=== PATIENT | male | born 1955 | race Caucasian/White ===

== ENCOUNTER 2017-02-08 20:31 | Emergency (ER) | payer OTHER ==
[~2017-02-08] VITALS: Ht 157.5 cm; Wt 55.5 kg
[~2017-02-08 20:31] MED LIST: AMOXICILLIN/CL875 MG PO; BENZONATATE200 MG PO; FLONASE NASAL50 MCG; MULTI FOR HIM PO; NEXIUM40 M1 PO
[2017-02-08] MEDS ORDERED: AUGMENTIN875TAB PO (23:07)
[2017-02-08] MEDS ORDERED: PERCOCET 5/325M1 TAB PO (23:07)
[2017-02-09 00:54] VITALS: BP 148/76
== END 2017-02-09 00:10 | disposition home or self-care (01) | DRG 605 ==
LOC: ED 20:31
PROC: 0HQEXZZ Repair Left Lower Arm Skin, External Approach (ICD-10-PCS; principal; 2017-02-09)
DX: S51.832A Puncture wound without foreign body of left forearm, initial encounter (principal); S50.812A Abrasion of left forearm, initial encounter; S51.812A Laceration without foreign body of left forearm, initial encounter; S60.811A Abrasion of right wrist, initial encounter; W54.0XXA Bitten by dog, initial encounter; Y93.89 Activity, other specified; Y92.007 Garden or yard of unspecified non-institutional (private) residence as the place of occurrence of the external cause

== ENCOUNTER → 2018-06-24 | Outpatient (REF) ==
[~2018-06-24] MED LIST changes: +AUGMENTIN875TAB PO; +PERCOCET 5/325M1 TAB PO
== END | disposition home or self-care (01) | DRG 951 ==
LOC: PAGE 12:00
PROVIDERS: ATTEND Nurse Practitioner Family
DX: Z02.9 Encounter for administrative examinations, unspecified (principal)

== ENCOUNTER → 2018-12-05 | Outpatient (REF) ==
[2018-12-05 09:19] LABS: CHOLESTEROL HDL RATIO 3.5 (<4.4 (CALC))
== END | disposition home or self-care (01) | DRG 951 ==
LOC: LAB 07:36
PROVIDERS: ATTEND Family Medicine
DX: Z02.6 Encounter for examination for insurance purposes (principal)

== ENCOUNTER 2019-07-28 07:53 | Day surgery (SDC) | payer OTHER ==
[~2019-07-28] VITALS: Ht 157.5 cm; Wt 55.3 kg
[~2019-07-28 07:53] MED LIST changes: +ALEVE220 M1 PO; +NEXIUM20 M1 PO; +VITAMINS & PO; +[UNRECOGNIZED DRUG - OTHER] PO
[2019-07-28 10:42] VITALS: BP 110/69
== END 2019-07-28 10:52 | disposition home or self-care (01) | DRG 392 ==
LOC: ORM 07:53
PROVIDERS: ATTEND Surgery
PROC: 0DJ08ZZ Inspection of Upper Intestinal Tract, Via Natural or Artificial Opening Endoscopic (ICD-10-PCS; principal; 2019-07-28)
PROC: 0DJD8ZZ Inspection of Lower Intestinal Tract, Via Natural or Artificial Opening Endoscopic (ICD-10-PCS; 2019-07-28)
DX: K21.9 Gastro-esophageal reflux disease without esophagitis (principal); K29.70 Gastritis, unspecified, without bleeding; K44.9 Diaphragmatic hernia without obstruction or gangrene; Z12.11 Encounter for screening for malignant neoplasm of colon; K64.8 Other hemorrhoids

== ENCOUNTER 2020-09-23 21:35 | Emergency (ER) | payer OTHER ==
[~2020-09-23] VITALS: Ht 157.5 cm; Wt 56.0 kg
[2020-09-23] MEDS ORDERED: ALEVE220 M1 PO (22:10)
[2020-09-23] MEDS ORDERED: NEXIUM40 MG PO (22:11)
[2020-09-23 22:25] LABS: HEMATOCRIT 45.9 % (39.0-50.0); HEMOGLOBIN 15.4 g/dl (14.0-18.0); IMMATURE GRANULOCYTES 0.3 % (0.0-5.0); MEAN CELL VOLUME 88.4 fL CALC (80.0-100.0); MEAN CORPUSCULAR HGB 29.7 pG CALC (26.0-32.0); MEAN CORPUSCULAR HGB CONC 33.6 g/dL CAL (32.0-36.0); NEUT# 3.45 thou/uL (1.82-7.42); RED BLOOD COUNT 5.19 mill/uL (4.70-6.10); RED CELL DISTRI WIDTH 11.9 % (11.5-15.5)
[2020-09-23 22:50] LABS: ALBUMIN 4.1 g/dL (3.2-5.0); ALKALINE PHOSPHATASE 98 u/l (38-126); AMYLASE 73 u/l (30-110); ANION GAP 11 (6-22 (CALC)); BUN 25 mg/dL (8-23); BUN/CREATININE RATIO 27 (12-20 (CALC)); CARBON DIOXIDE 29 mmol/l (22-30); CHLORIDE 104 mmol/l (95-108); CREATININE 0.9 mg/dL (0.7-1.3); GFR > 60 ML/MIN (>=60 (CALC)); GFR FOR AFR.AMER. > 60 ML/MIN (>=60 (CALC)); LIPASE 148 u/l (23-300); POTASSIUM 4.1 mmol/l (3.5-5.1); SGOT/AST 23 u/l (19-48); SODIUM 139 mmol/l (137-146); TOTAL PROTEIN 6.8 g/dL (6.3-8.2)
[2020-09-23 22:51] LABS: ACT PARTIAL THROMBO TIME 25.1 SECONDS (20.0-32.5); BILIRUBIN, TOTAL 0.3 mg/dL (0.0-1.4); INTERNATIONAL NORMALIZED RATIO 0.9 RATIO (0.7-1.3); PROTHROMBIN TIME 9.4 SECONDS (9.0-12.5)
[2020-09-23 23:02] LABS: MYOGLOBIN 22 ng/mL (0 - 121)
[2020-09-23 23:08] LABS: D-DIMER 0.28 mg/L (0.19-0.60)
[2020-09-23] MEDS ORDERED: PROTONIX40 M2 PO (23:30)
[2020-09-23 23:50] VITALS: BP 116/78
== END 2020-09-23 23:55 | disposition home or self-care (01) | DRG 392 ==
LOC: ED 21:35
PROVIDERS: Family Medicine
DX: K21.9 Gastro-esophageal reflux disease without esophagitis (principal)

== ENCOUNTER 2024-10-31 14:04 | Observation (INO) | payer MEDICARE, OTHER ==
[2024-10-31] VITALS (22 sets, daily range): BP systolic 105–148; BP diastolic 66–84
[~2024-10-31] VITALS: Ht 157.5 cm; Wt 62.0 kg
[~2024-10-31 14:04] MED LIST changes: +ALBUTEROL SUL0.083 % IN; +AMOX/K CLAV875 M1 PO; +AZITHROMYCIN500 MG PO; +FAMOTIDINE40 M1 PO; +FATHER JOH10 MG/5 ML PO; +MEDDOSEPAK PO; +MELOXICAM15 MG PO; +NEBULIZER KIT/TUBING IN; +NEXIUM40 MG PO; +PEPCID20 MG PO; +PEPCID40 MG PO; +PROTONIX40 M2 PO; +ROBITUSSIN AC10 ML PO; +TAM75CAP PO
[2024-10-31] MEDS ORDERED: ASPIRIN 81 MG/TAB PO ONE (14:10)
[2024-10-31 14:28] LABS: BASO% 0.2 % (0-3); EOS% 0.2 % (0-8); HEMATOCRIT 43.2 % (39.0-50.0); HEMOGLOBIN 14.9 g/dl (14.0-18.0); IMMATURE GRANULOCYTES 0.1 % (0.0-5.0); LYMPH% 13.9 % (15-41); MEAN CELL VOLUME 88.2 fL CALC (80.0-100.0); MEAN CORPUSCULAR HGB 30.4 pG CALC (26.0-32.0); MEAN CORPUSCULAR HGB CONC 34.5 g/dL CAL (32.0-36.0); MONO% 5.2 % (2-13); NEUT# 6.84 thou/uL (1.82-7.42); NEUT% 80.4 % (42-76); RED BLOOD COUNT 4.9 mill/uL (4.70-6.10); RED CELL DISTRI WIDTH 11.6 % (11.5-15.5)
[2024-10-31 14:46] LABS: ALBUMIN 4.7 g/dL (3.2-5.0); ALKALINE PHOSPHATASE 73 u/l (38-126); ANION GAP 14 (6-22 (CALC)); BILIRUBIN, TOTAL 0.7 mg/dL (0.2-1.3); BUN 20 mg/dL (8-23); BUN/CREATININE RATIO 21 (12-20 (CALC)); CARBON DIOXIDE 28 mmol/l (22-30); CHLORIDE 103 mmol/l (95-108); CREATININE 0.9 mg/dL (0.7-1.3); ESTIMATED GFR 91 ML/MIN (>=90 (CALC)); POTASSIUM 4.1 mmol/l (3.5-5.1); SGOT/AST 34 u/l (19-48); SODIUM 140 mmol/l (137-146); TOTAL PROTEIN 7.7 g/dL (6.3-8.2)
[2024-10-31] MEDS ORDERED: ACETAMINOPHEN 325 MG/TAB PO PRN (17:50)
[2024-10-31] MEDS ORDERED: oxyCODONE HCL 5 MG/TAB PO PRN (17:50)
[2024-10-31] MEDS ORDERED: NITROGLYCERIN 0.4 MG/TAB SL SCH (17:50)
[2024-10-31] MEDS ORDERED: Polyethylene Glycol 3350 17 GM/PKT PO PRN (17:50)
[2024-10-31] MEDS ORDERED: ONDANSETRON 4 MG/TAB ODT SL PRN (17:50)
[2024-10-31 18:12] LABS: CHOLESTEROL HDL RATIO 3.3 (<4.4 (CALC))
[2024-10-31 18:43] LABS: TSH, 3RD GENERATION 1.22 uIU/mL (0.47 - 4.68)
[2024-10-31] MEDS ORDERED: ENOXAPARIN SODIUM 40 MG/0.4 ML SYR SC SCH (21:00)
[2024-10-31] MEDS ORDERED: ATORVASTATIN CALCIUM 40 MG/TAB PO SCH (21:00)
[2024-11-01 00:24] VITALS: BP 100/53
[2024-11-01 04:36] VITALS: BP 108/59
[2024-11-01 05:51] LABS: BASO% 0.4 % (0-3); EOS% 2.3 % (0-8); HEMATOCRIT 41.8 % (39.0-50.0); HEMOGLOBIN 14.5 g/dl (14.0-18.0); IMMATURE GRANULOCYTES 0.2 % (0.0-5.0); LYMPH% 30.3 % (15-41); MEAN CELL VOLUME 89.5 fL CALC (80.0-100.0); MEAN CORPUSCULAR HGB CONC 34.7 g/dL CAL (32.0-36.0); MONO% 9.2 % (2-13); NEUT# 3.28 thou/uL (1.82-7.42); NEUT% 57.6 % (42-76); RED BLOOD COUNT 4.67 mill/uL (4.70-6.10); RED CELL DISTRI WIDTH 11.6 % (11.5-15.5)
[2024-11-01 06:01] LABS: ALBUMIN 3.8 g/dL (3.2-5.0); BILIRUBIN, TOTAL 0.6 mg/dL (0.2-1.3); CREATININE 0.9 mg/dL (0.7-1.3); MAGNESIUM 2.1 mg/dL (1.6-2.3); POTASSIUM 4.2 mmol/l (3.5-5.1); TOTAL PROTEIN 6.4 g/dL (6.3-8.2)
[2024-11-01 06:12] VITALS: BP 109/63
[2024-11-01] MEDS ORDERED: ASPIRIN 81 MG/TAB PO SCH (09:00)
[2024-11-01] MEDS ORDERED: LIPITOR40 M1 PO (09:49)
[2024-11-01 09:52] VITALS: BP 100/69
[2024-11-01 10:42] VITALS: BP 100/69
== END 2024-11-01 12:00 | disposition home or self-care (01) ==
LOC: ED 14:04 → ED-I 17:30 → ED 17:57 → MS2 17:58
PROVIDERS: Family Medicine; ADMIT Internal Medicine; ATTEND Internal Medicine
DX: R07.9 Chest pain, unspecified (principal); K21.9 Gastro-esophageal reflux disease without esophagitis; M19.90 Unspecified osteoarthritis, unspecified site; Z79.899 Other long term (current) drug therapy
CPT/HCPCS: G0378; J1650